=== PATIENT | female | born 1935 | race African-American/Black ===

== ENCOUNTER 2021-10-28 18:05 | Inpatient (IN) | payer MEDICARE, OTHER ==
[~2021-10-28] VITALS: Ht 162.6 cm; Wt 64.4 kg
--- NOTE | 2021-10-28 18:29 | NUR ---
[id number] FRM HOME C/O WEAKNESS,WORSENING SOB. +COVID 2 WEEKS AGO. PT A/OX3. TOLERATING O2 2LPM VIA N/C WELL AT 96%. CONNECTED PT TO POX AND MONITOR. AMBULATORY.
--- NOTE | 2021-10-28 18:30 | NUR ---
IV LINE IS ESTABLISHED, BLOOD SPECIMEN COLLECTED AND SENT TO THE LAB. THE LINE IS SALINE LOCKED.
--- NOTE | 2021-10-28 18:38 | NUR ---
CAN LABELER AT PT'S BEDSIDE
--- NOTE | 2021-10-28 18:43 | NUR ---
PRINT SHOP CHIEF CLERK AT PT'S BEDSIDE
[2021-10-28] MEDS ORDERED: DEXAMETHASONE SOD PHOSPHATE 10 MG/ML VIAL ONE (18:45)
--- NOTE | 2021-10-28 18:45 | NUR ---
Shelby chahal in [facility] - 10/28/21 at 1907 by ADELIA COVID ANTIGEN SWAB COLLECTED AND SENT TO LAB
--- NOTE | 2021-10-28 18:49 | NUR ---
COVID PCR SWAB DONE AND SENT TO THE LAB
[2021-10-28] MEDS ORDERED: DEXAMETHASONE SOD PHOSPHATE 10 MG/ML VIAL IV ONE (19:00)
--- NOTE | 2021-10-28 19:06 | NUR ---
SON WILL WAIT IN IS CAR. LUCIANO SINGLETON. CONTACT # [phone]
--- NOTE | 2021-10-28 19:07 | NUR ---
URINE COLLECTED AND SENT TO LAB
[2021-10-28 19:22] LABS: D-DIMER 1.57 mg/L(FEU (0.17-0.50)
--- NOTE | 2021-10-28 19:30 | NUR ---
TRE RT AT PT'S BEDSIDE FOR ABG. INFLUENZA A+B SWAB COLLECTED AND SENT TO LAB
[2021-10-28 19:31] LABS: CREATINE KINASE, TOTAL 43 U/L (26-192)
[2021-10-28 19:34] LABS: C-REACTIVE PROTEIN 4.9 mg/dL (0.0-0.9)
[2021-10-28 19:36] LABS: CALCIUM, SERUM 8.3 mg/dL (8.5-10.1); CARBON DIOXIDE 25 mmol/L (21-32); CHLORIDE 92 mmol/L (98-107); CREATININE 0.9 mg/dL (0.6-1.3); GLUCOSE 179 mg/dL (74-106); POTASSIUM 4.1 mmol/L (3.5-5.1); SODIUM SERUM 128 mmol/L (136-145); UREA NITROGEN, BLOOD 11 mg/dL (7-18)
[2021-10-28 19:47] LABS: ALANINE AMINOTRANSFERASE 45 U/L (12-78); ALKALINE PHOSPHATASE 140 U/L (46-116); TOTAL PROTEIN, SERUM 6.8 g/dL (6.4-8.2)
[2021-10-28 19:49] LABS: BASOPHILS % (AUTO) 0.2 % (0.0-2.0); EOSINOPHILS % (AUTO) 0.1 % (0.0-6.0); HEMATOCRIT 31 % (33-45); HEMOGLOBIN 10.8 g/dL (11.5-14.8); LYMPHOCYTES # (AUTO) 0.6 K/uL (0.8-4.8); LYMPHOCYTES % (AUTO) 4.9 % (20.0-44.0); MEAN CORPUSCULAR HGB CONC 35 g/dl (31.0-36.0); MEAN CORPUSCULAR VOLUME 86 fL (82-100); MONOCYTES # (AUTO) 0.7 K/uL (0.1-1.30); MONOCYTES % (AUTO) 5.7 % (2.0-12.0); NEUTROPHILS # (AUTO) 10.9 K/uL (1.8-8.9); NEUTROPHILS % (AUTO) 89.1 % (43.0-81.0); PLATELET COUNT (AUTO) 555 K/uL (150-450); RED BLOOD CELL COUNT(AUTO) 3.58 MIL/uL (4.0-5.2); WHITE BLOOD COUNT (AUTO) 12.2 K/uL (4.3-11.0)
[2021-10-28 19:59] LABS: ABG BASE EXCESS 1.3 mmol/L; ABG PCO2 32.5 mmHg (35.0-45.0); ABG PO2 59.5 mmHg (75.0-100.0); COHb 0.3 % (0.5-1.5); MetHb 0.2 % (0.0-1.5); O2Hb 90.6 % (94.0-97.0); SITE, ABG Left Radial; VENT MODE, BG room air
[2021-10-28] MEDS ORDERED: IOHEXOL-350 100 ML VIAL IV ONE (20:06)
[2021-10-28] MEDS ORDERED: CT SWABBABLE VALVE TRANS SET 1 EA INFUS.SET MC ONE (20:06)
[2021-10-28 20:17] LABS: BILIRUBIN,URINE NEGATIVE (NEGATIVE); COLOR,URINE YELLOW (YELLOW); LEUKOCYTE ESTERASE ,URINE NEGATIVE (NEGATIVE); NITRITE, URINE NEGATIVE (NEGATIVE); PH,URINE 5.5 (5.0-8.0); PROTEIN,URINE TRACE mg/dl (NEGATIVE); UGLUCOSE NEGATIVE (NEGATIVE); UROBILINOGEN,URINE 0.2 EU/dL (0.2)
[2021-10-28 20:45] LABS: BACTERIA,URINE RARE /HPF (None Seen); MUCUS,URINE Few /LPF (None Seen); RBC,URINE 0-2 /HPF (0-2); WBC,URINE 0-2 /HPF (0-3)
[2021-10-28] MEDS ORDERED: CEFTRIAXONE 1GM BAG (ER ONLY) 50 ML IV ONE ×2 (21:00→21:43)
[2021-10-28] MEDS ORDERED: AZITHROMYCIN 500 MG in IV D5W 250 ML IV ONE (21:00)
--- NOTE | 2021-10-28 21:01 | NUR ---
Shleby chahal in [facility] - 10/28/21 at 2102 by TERRELL called ru kent
--- NOTE | 2021-10-28 21:02 | NUR ---
called [facility], paged renita
[2021-10-28] MEDS ORDERED: ENOXAPARIN SODIUM 60 MG/0.6 ML DISP.SYRIN SQ ONE ×2 (21:30→21:43)
[2021-10-28] MEDS ORDERED: AZITHROMYCIN 500 MG VIAL ONE (21:43)
[2021-10-28] MEDS ORDERED: MAG HYDROX/AL HYDROX/SIMETH 30 ML UDC PO PRN (22:30)
[2021-10-28] MEDS ORDERED: ACETAMINOPHEN 325 MG TABLET PO PRN (22:30)
[2021-10-28] MEDS ORDERED: IV NS 0.9% 1,000 ML IV ONE (22:30)
[2021-10-28] MEDS ORDERED: ONDANSETRON HCL/PF 4 MG/2 ML VIAL IVP PRN (22:30)
[2021-10-28] MEDS ORDERED: Z GUARD REMEDY 4 OZ OINT TP PRN (22:30)
[2021-10-28 22:35] LABS: ASPARTATE AMINOTRANSFERASE 17 U/L (15-37)
[2021-10-28 22:46] LABS: BILIRUBIN,TOTAL < 0.1 mg/dL (0.2-1.0)
[2021-10-29] VITALS (12 sets, daily range): BP systolic 111–149; BP diastolic 69–88
--- NOTE | 2021-10-29 02:58 | NUR ---
called for report. nurse will call back.
--- NOTE | 2021-10-29 03:15 | NUR ---
REPORT GIVEN TO TERESA FOR FACUNDO
--- NOTE | 2021-10-29 03:45 | NUR ---
PT TRANSPORTED UNIT ONGURNEY WITH EMT AND RN AT BEDSIDE. NAD NOTED. PT AMBULATED FROM RNEY WITH TO BED ON STEADY GAIT W/ SBA
--- NOTE | 2021-10-29 05:13 | NUR ---
ADMISSION NOTES RECEIVED PT VIA MARYCHUY, ACCOMPANIED BY 2 RNs @0340. AOx4, PAKISTANI SPEAKING BUT UNDERSTANDS SOME [place]. ON 3LPM VIA NASAL CANNULA AND TOLERATING WELL. NO SOB NOTED. NO S/SX OF RESPIRATORY DISTRESS NOTED. TELE MONITOR DETECTS AFIB BUT THEN CONVERTED TO SR WITH RATE IN 80S. IV ACCESS IN LAC #18. IV IS INTACT, PATENT, AND FLUSHING WELL. SAFETY PRECAUTIONS IN PLACE: BED IN LOWEST, LOCKED POSITION, SIDERAILS UPx2, AND BRAKES ON. TABLE AND CALL LIGHT WITHIN REACH. WILL CONTINUE TO MONITOR.
[2021-10-29] MEDS ORDERED: FURO20TA4 PO (06:17)
[2021-10-29] MEDS ORDERED: AMLO-212 PO (06:17)
[2021-10-29] MEDS ORDERED: ROSU10TA29 PO (06:17)
[2021-10-29] MEDS ORDERED: CLON0.1T PO (06:17)
[2021-10-29] MEDS ORDERED: ICOS1CAP PO (06:17)
[2021-10-29] MEDS ORDERED: ATEN25TA PO (06:17)
[2021-10-29] MEDS ORDERED: POTA8TAB3 PO (06:17)
[2021-10-29] MEDS ORDERED: AMIO200T5 PO (06:17)
[2021-10-29] MEDS ORDERED: APIX5TAB PO (06:17)
[2021-10-29] MEDS ORDERED: METF-440 PO (06:17)
--- NOTE | 2021-10-29 06:53 | NUR ---
RN CLOSING NOTES PT IN BED, AWAKE. AOx4, CITIZEN OF [place] SPEAKING BUT UNDERSTANDS SOME [place]HM[place]. ON 3LPM VIA NASAL CANNULA AND TOLERATING WELL. NO SOB NOTED. NO S/SX OF RESPIRATORY DISTRESS NOTED. TELE MONITOR DETECTS SR WITH RATE IN 80S. IV ACCESS IN LAC #18. IV IS INTACT, PATENT, AND FLUSHING WELL. ALL NEEDS MET. PT KEPT CLEAN AND DRY. SAFETY PRECAUTIONS IN PLACE: BED IN LOWEST, LOCKED POSITION, SIDERAILS UPx2, AND BRAKES ON. TABLE AND CALL LIGHT WITHIN REACH. WILL ENDORSE TO ONCOMING SHIFT FOR FACUNDO. RECONCILED PATIENTS HOME MEDS. PLACED MEDICATIONS IN ENVELOPE PER PROTOCOL. PATIENT UPSET BUT EXPLAINED THE PROTOCOL.
[2021-10-29 07:27] LABS: HEMATOCRIT 33 % (33-45); HEMOGLOBIN 11.2 g/dL (11.5-14.8); LYMPHOCYTES # (AUTO) 0.4 K/uL (0.8-4.8); LYMPHOCYTES % (AUTO) 4.4 % (20.0-44.0); MEAN CORPUSCULAR HGB CONC 34 g/dl (31.0-36.0); MEAN CORPUSCULAR VOLUME 85 fL (82-100); MONOCYTES # (AUTO) 0.4 K/uL (0.1-1.30); MONOCYTES % (AUTO) 3.6 % (2.0-12.0); PLATELET COUNT (AUTO) 567 K/uL (150-450); RED BLOOD CELL COUNT(AUTO) 3.86 MIL/uL (4.0-5.2); WHITE BLOOD COUNT (AUTO) 9.8 K/uL (4.3-11.0)
[2021-10-29] MEDS ORDERED: ZINC1CAP3 PO (07:44)
[2021-10-29] MEDS ORDERED: CHOL250C2 PO (07:44)
[2021-10-29 07:54] LABS: CALCIUM, SERUM 8.7 mg/dL (8.5-10.1); CREATININE 0.8 mg/dL (0.6-1.3); MAGNESIUM 2.3 mg/dL (1.8-2.4); PHOSPHORUS 4.1 mg/dL (2.5-4.9); POTASSIUM 3.7 mmol/L (3.5-5.1)
[2021-10-29] MEDS: METFORMIN 500 MG TABLET PO SCH (08:05)
[2021-10-29] MEDS: ZINC SULFATE 220 MG CAPSULE PO SCH (08:05)
[2021-10-29] MEDS: CHOLECALCIFEROL 1,000 UNIT TABLET (VIT D3) PO SCH (08:05)
[2021-10-29] MEDS: AMIODARONE HCL 200 MG TABLET PO SCH ×2 (08:07→21:27)
[2021-10-29] MEDS: AMLODIPINE BESYLATE 5 MG TABLET PO SCH ×2 (08:07→17:03)
[2021-10-29] MEDS: DEXAMETHASONE SOD PHOSPHATE 10 MG/ML VIAL IV SCH (08:08)
[2021-10-29] MEDS: ENOXAPARIN SODIUM 40 MG/0.4 ML DISP.SYRIN SQ SCH (08:10)
[2021-10-29] MEDS ORDERED: AZITHROMYCIN 250 MG TABLET PO SCH (09:00)
[2021-10-29] MEDS ORDERED: APIXABAN 5 MG TABLET PO SCH (09:00)
--- NOTE | 2021-10-29 15:00 | NUR ---
ICU/RN PT TRANSFERRED FROM [facility] FOR PERICARDIOCENTESIS.V/S STABLE,AFEBRILE.NO PAIN REPORTED AT THIS TIME.PT IS AWAKE,ALERT,ORIENTED.TOGOLESE SPEAKING.ON 3L N/C SAT O2-96%.LEFT UPPER ARM IV LINE .-HL.PT IS CONTINENT.PT IS USING BEDSIDE COMMODE. CONSENT FOR PROCEDURE IS READY.SINUS RHYTHM ON MONITOR.
[2021-10-29] MEDS ORDERED: DEXTROSE 50%-WATER 50 ML DISP.SYRIN IV PRN (16:00)
[2021-10-29] MEDS: BLOOD SUGAR DIAGNOSTIC 1 EACH STRIP VI SCH ×2 (17:03→22:34)
[2021-10-29] MEDS: *INSULIN REGULAR(HUMULIN R)HUM 100 UNIT/ML VIAL SQ PRN ×2 (17:41→22:42)
--- NOTE | 2021-10-29 18:00 | NUR ---
ICU/RN DUE MEDS ARE GIVEN ORDERED.V/S STABLE,AFEBRILE.NO PAIN REPORTED AT THIS TIME.PT EATS 75% FROM HER MEAL TRAY.PM CARE PROVIDED.CONTINUE MONITORING.
--- NOTE | 2021-10-29 19:45 | NUR ---
ICU/BEAD BUILDER RECIEVED REPORT FROM DAY NURSE. SEE FLOWSHEET FOR ASSESSMENT, THERE IS NO SKIN ISSUES WHICH NEEDS TO BE ADDRESSED ON FLOWSHEET. PT IS A/OX4, AND THERE ARE NO IV FLUIDS. PT TURNS SELF AND REPOSITIONS SELF FOR COMFORT AND CARE.
[2021-10-29] MEDS ORDERED: CEFTRIAXONE 1 G in IV D5W 50 ML IV SCH (21:00)
[2021-10-29] MEDS: ZOLPIDEM TARTRATE 5 MG TABLET PO PRN (23:24)
[2021-10-30] VITALS (26 sets, daily range): BP systolic 96–150; BP diastolic 35–93
[2021-10-30 06:10] LABS: HEMATOCRIT 29 % (33-45); HEMOGLOBIN 9.9 g/dL (11.5-14.8); LYMPHOCYTES # (AUTO) 0.6 K/uL (0.8-4.8); LYMPHOCYTES % (AUTO) 4.2 % (20.0-44.0); MEAN CORPUSCULAR HGB CONC 34 g/dl (31.0-36.0); MEAN CORPUSCULAR VOLUME 86 fL (82-100); MONOCYTES # (AUTO) 0.8 K/uL (0.1-1.30); MONOCYTES % (AUTO) 5.2 % (2.0-12.0); NEUTROPHILS # (AUTO) 13.3 K/uL (1.8-8.9); NEUTROPHILS % (AUTO) 90.6 % (43.0-81.0); PLATELET COUNT (AUTO) 546 K/uL (150-450); RED BLOOD CELL COUNT(AUTO) 3.41 MIL/uL (4.0-5.2); WHITE BLOOD COUNT (AUTO) 14.7 K/uL (4.3-11.0)
[2021-10-30 06:45] LABS: ALBUMIN 2.6 g/dL (3.4-5.0); BILIRUBIN,TOTAL 0.4 mg/dL (0.2-1.0); CALCIUM, SERUM 8.3 mg/dL (8.5-10.1); CREATININE 0.8 mg/dL (0.6-1.3); MAGNESIUM 2.2 mg/dL (1.8-2.4); PHOSPHORUS 4.2 mg/dL (2.5-4.9); POTASSIUM 4.8 mmol/L (3.5-5.1); TOTAL PROTEIN, SERUM 5.7 g/dL (6.4-8.2)
[2021-10-30] MEDS: BLOOD SUGAR DIAGNOSTIC 1 EACH STRIP VI SCH ×4 (07:32→21:07)
--- NOTE | 2021-10-30 07:40 | NUR ---
ICU/RN PT IS RESTING ,ON 3L N/C SAT O2-95%.V/S STABLE,AFEBRILE.NO PAIN REPORTED AT THIS TIME.PT IS WAITING FOR PERICARDICENTESIS. IV-HL.PT IS AMBULATING IN THE ROOM.LABS REVIEW.MD AWARE.CONTINUE MONITORING..
[2021-10-30] MEDS: DEXAMETHASONE SOD PHOSPHATE 10 MG/ML VIAL IV SCH (08:17)
[2021-10-30] MEDS: METFORMIN 500 MG TABLET PO SCH (08:18)
[2021-10-30] MEDS: AMIODARONE HCL 200 MG TABLET PO SCH ×2 (08:18→21:06)
[2021-10-30] MEDS: AMLODIPINE BESYLATE 5 MG TABLET PO SCH ×2 (08:18→17:21)
[2021-10-30] MEDS: CHOLECALCIFEROL 1,000 UNIT TABLET (VIT D3) PO SCH (08:18)
[2021-10-30] MEDS: ZINC SULFATE 220 MG CAPSULE PO SCH (08:18)
[2021-10-30] MEDS: ENOXAPARIN SODIUM 40 MG/0.4 ML DISP.SYRIN SQ SCH (08:20)
[2021-10-30] MEDS: *INSULIN REGULAR(HUMULIN R)HUM 100 UNIT/ML VIAL SQ PRN ×3 (08:22→21:15)
[2021-10-30] MEDS: MAGNESIUM HYDROXIDE 30 ML UDC PO PRN (11:18)
--- NOTE | 2021-10-30 14:30 | NUR ---
ICU/RN PT WENT TO ATRIAL FIBRILLATION HR-120-130 BPM.MD NOTIFIED. NEW ORDERS RECEIVED.
[2021-10-30] MEDS ORDERED: AMIODARONE 150 MG in IV D5W 100 ML IV ONE (15:30)
--- NOTE | 2021-10-30 15:45 | NUR ---
ICU/RN PT CONVERTED BACK TO SINUS RHYTHM. BEFORE AMIODARONE STARTED.MD NOTIFIED. HR 80-90 BPM. MD NOTIFIED.AMIODARONE PLACED ON HOLD. KEEP IN ICU.CONTINUE MONITORING.
[2021-10-30] MEDS ORDERED: AMIODARONE 450 MG in IV D5W 241 ML IV PRN (16:00)
--- NOTE | 2021-10-30 19:30 | NUR ---
RN OPENING NOTE RECEIVED PATIENT IN BED. A/OX3, NIUEAN SPEAKING, SPEAKS VERY LITTLE TURKM[place]. ABLE TO MAKE BASIC NEEDS KNOWN. ON OXYGEN 3L/MIN VIA NASAL CANNULA, RESPIRATIONS ARE EVEN AND UNLABORED. NO S/S SOB NOTED. NO C/O OR S/S PAIN NOTED. NO DISTRESS. TELE MONITOR READS SINUS RHYTHM HR 96. IV ACCESS IN OSCAR MIDLINE AND LAC#18 PATENT AND SALINE LOCKED, BED IS LOW AND LOCKED, HOB ELEVATED IN SEMI FOWLERS, SIDE RAILS UP X2, CALL LIGHT WITHIN REACH. ALARMS ON AND SAFETY PRECAUTIONS IN PLACE. OTOLARYNGOLOGY REP ED WHO SPEAKS NIUEAN WAS ABLE TO INSTRUCT PATIENT TO DO A SPUTUM COLLECTION.
[2021-10-30] MEDS: ZOLPIDEM TARTRATE 5 MG TABLET PO PRN (22:18)
[2021-10-31] VITALS (22 sets, daily range): BP systolic 104–144; BP diastolic 59–90
[2021-10-31 06:08] LABS: C-REACTIVE PROTEIN 2.5 mg/dL (0.0-0.9); HEMATOCRIT 30 % (33-45); HEMOGLOBIN 10.3 g/dL (11.5-14.8); LYMPHOCYTES # (AUTO) 0.5 K/uL (0.8-4.8); LYMPHOCYTES % (AUTO) 3.4 % (20.0-44.0); MEAN CORPUSCULAR HGB CONC 34 g/dl (31.0-36.0); MEAN CORPUSCULAR VOLUME 86 fL (82-100); MONOCYTES # (AUTO) 0.5 K/uL (0.1-1.30); MONOCYTES % (AUTO) 3.6 % (2.0-12.0); NEUTROPHILS # (AUTO) 13.8 K/uL (1.8-8.9); PLATELET COUNT (AUTO) 598 K/uL (150-450); RED BLOOD CELL COUNT(AUTO) 3.54 MIL/uL (4.0-5.2); WHITE BLOOD COUNT (AUTO) 14.9 K/uL (4.3-11.0)
--- NOTE | 2021-10-31 06:18 | NUR ---
RN CLOSING NOTE RESTING IN BED. A/OX3. REMAINS ON OXYGEN 3L/MIN VIA NASAL CANNULA. WHEN MOVING TO [facility] [place] PATIENT DID DESATURATE TO 90% ON 3L NC. NO PAIN. TELE MONITOR CONTINUES TO READ SINUS RHYTHM .OSCAR MIDLINE AND LAC#18 MAINTAINED, BED REMAINS LOW AND LOCKED, HOB ELEVATED IN SEMI FOWLERS, SIDE RAILS UP X2, CALL LIGHT WITHIN REACH. ALARMS ON AND SAFETY PRECAUTIONS IN PLACE. WILL ENDORSE TO ONCOMING SHIFT.
[2021-10-31 07:10] LABS: ALANINE AMINOTRANSFERASE 34 U/L (12-78); ALBUMIN 2.6 g/dL (3.4-5.0); ALKALINE PHOSPHATASE 105 U/L (46-116); ASPARTATE AMINOTRANSFERASE 15 U/L (15-37); BILIRUBIN,TOTAL 0.3 mg/dL (0.2-1.0); CALCIUM, SERUM 8.6 mg/dL (8.5-10.1); CARBON DIOXIDE 27 mmol/L (21-32); CHLORIDE 97 mmol/L (98-107); CREATININE 0.9 mg/dL (0.6-1.3); GLUCOSE 144 mg/dL (74-106); MAGNESIUM 2.3 mg/dL (1.8-2.4); PHOSPHORUS 3.5 mg/dL (2.5-4.9); POTASSIUM 4.6 mmol/L (3.5-5.1); SODIUM SERUM 135 mmol/L (136-145); TOTAL PROTEIN, SERUM 6.3 g/dL (6.4-8.2); UREA NITROGEN, BLOOD 19 mg/dL (7-18)
[2021-10-31] MEDS: DEXAMETHASONE SOD PHOSPHATE 10 MG/ML VIAL IV SCH (08:15)
[2021-10-31] MEDS: COLCHICINE 0.6 MG TABLET PO SCH ×2 (08:15→17:49)
[2021-10-31] MEDS: CHOLECALCIFEROL 1,000 UNIT TABLET (VIT D3) PO SCH (08:15)
[2021-10-31] MEDS: BLOOD SUGAR DIAGNOSTIC 1 EACH STRIP VI SCH ×4 (08:15→21:00)
[2021-10-31] MEDS: AMLODIPINE BESYLATE 5 MG TABLET PO SCH ×2 (08:16→17:49)
[2021-10-31] MEDS: METFORMIN 500 MG TABLET PO SCH (08:16)
[2021-10-31] MEDS: AMIODARONE HCL 200 MG TABLET PO SCH ×2 (08:16→20:24)
[2021-10-31] MEDS: ZINC SULFATE 220 MG CAPSULE PO SCH (08:16)
[2021-10-31] MEDS: ENOXAPARIN SODIUM 40 MG/0.4 ML DISP.SYRIN SQ SCH (08:19)
[2021-10-31] MEDS: INSULIN REGULAR, HUMAN 100 UNIT/ML 3 ML VIAL SQ PRN ×3 (09:27→18:09)
--- NOTE | 2021-10-31 18:09 | NUR ---
PT HAS BEEN IN AND OUT OF A-FIB 110'S-130'S SINCE 1300 TODAY, PT IS ASYMPTOMATIC. DR. GOMEZ NOTIFIED AND THAT PATIENT HAS ROOM IN COVID OVERFLOW -. PER DR PATIENT CAN STILL DOWNGRADE TO TELE COVID OVERFLOW.
--- NOTE | 2021-10-31 20:00 | NUR ---
Patient arrived to unit at `1940 in stable condition. No signs of distress noted. Patient is A&Ox4 east timorese speaking. OSCAR midline and LAC #18G flushed and patent. Denies SOB. Is able to make needs known. Tele monitor applied. Oriented to unit protocols, call light, bed controls. Iso precautions and fall precautions in place. Tolerating O2 at 3L 96% sat. Will continue to monitor.
[2021-10-31] MEDS: *INSULIN REGULAR(HUMULIN R)HUM 100 UNIT/ML VIAL SQ PRN (21:11)
[2021-10-31] MEDS: ZOLPIDEM TARTRATE 5 MG TABLET PO PRN (23:58)
[2021-11-01] VITALS: BP_SYST 108; BP_SYST 127; BP_DIAS 50; BP_DIAS 72
[2021-11-01 04:00] VITALS: BP_SYST 122; BP_SYST 124; BP_DIAS 67; BP_DIAS 84
--- NOTE | 2021-11-01 06:17 | NUR ---
Patient stable overnight. No episodes of distress. SR at 87 on monitor. Able to use BSC with assist without any SOB. Patient currently resting in bed calmly. Has been NPO since midnight for pericardiocentesis.
[2021-11-01] MEDS: BLOOD SUGAR DIAGNOSTIC 1 EACH STRIP VI SCH ×4 (06:54→23:15)
--- NOTE | 2021-11-01 07:40 | NUR ---
RETAIL PRICING COORDINATOR OPENING NOTE RECEIVED PT ASLEEP IN BED, EASY TO AROUSE. ALERT AND ORIENTED X 4. BREATHING IS EVEN AND UNLABORED. NO S/SX OF DISTRESS NOTED. NO C/O PAIN. IV ACCESS OSCAR MIDLINE PATENT AND INTACT. PT WITH EXTERNAL POLE INSPECTOR WITH SR 80S READING. SAFETY MEASURES IN PLACE WITH BED LOCKED AND LOW POSITION;SIDE RAILS UP X2. WILL MONITOR PATIENT FOR CHANGES IN CONDITION.
[2021-11-01 08:00] VITALS: BP 121/68
[2021-11-01 08:07] LABS: HEMATOCRIT 32 % (33-45); HEMOGLOBIN 10.6 g/dL (11.5-14.8); LYMPHOCYTES # (AUTO) 0.5 K/uL (0.8-4.8); LYMPHOCYTES % (AUTO) 4.4 % (20.0-44.0); MEAN CORPUSCULAR HGB CONC 34 g/dl (31.0-36.0); MEAN CORPUSCULAR VOLUME 86 fL (82-100); MONOCYTES # (AUTO) 0.4 K/uL (0.1-1.30); MONOCYTES % (AUTO) 3.7 % (2.0-12.0); NEUTROPHILS # (AUTO) 10.8 K/uL (1.8-8.9); NEUTROPHILS % (AUTO) 91.9 % (43.0-81.0); PLATELET COUNT (AUTO) 574 K/uL (150-450); RED BLOOD CELL COUNT(AUTO) 3.68 MIL/uL (4.0-5.2); WHITE BLOOD COUNT (AUTO) 11.8 K/uL (4.3-11.0)
[2021-11-01 08:13] LABS: ALBUMIN 2.5 g/dL (3.4-5.0); BILIRUBIN,TOTAL 0.3 mg/dL (0.2-1.0); CALCIUM, SERUM 8.2 mg/dL (8.5-10.1); CREATININE 0.9 mg/dL (0.6-1.3); MAGNESIUM 2.4 mg/dL (1.8-2.4); PHOSPHORUS 3.9 mg/dL (2.5-4.9); POTASSIUM 3.9 mmol/L (3.5-5.1); TOTAL PROTEIN, SERUM 6.2 g/dL (6.4-8.2)
[2021-11-01] MEDS: ZINC SULFATE 220 MG CAPSULE PO SCH (09:00)
[2021-11-01] MEDS: METFORMIN 500 MG TABLET PO SCH (09:00)
[2021-11-01] MEDS: ENOXAPARIN SODIUM 40 MG/0.4 ML DISP.SYRIN SQ SCH (09:00)
[2021-11-01] MEDS: CHOLECALCIFEROL 1,000 UNIT TABLET (VIT D3) PO SCH (09:00)
[2021-11-01] MEDS: COLCHICINE 0.6 MG TABLET PO SCH ×2 (09:00→17:00)
[2021-11-01] MEDS: AMLODIPINE BESYLATE 5 MG TABLET PO SCH ×2 (09:00→17:00)
[2021-11-01] MEDS: AMIODARONE HCL 200 MG TABLET PO SCH ×2 (09:00→21:06)
[2021-11-01] MEDS: DEXAMETHASONE SOD PHOSPHATE 10 MG/ML VIAL IV SCH (09:30)
[2021-11-01 12:00] VITALS: BP 116/86
[2021-11-01] MEDS ORDERED: ANESTHESIA TRAY IN PYXIS 1 EA TRAY MC ONE (15:31)
[2021-11-01] MEDS ORDERED: KETAMINE HCL (500MG/10ML) 50 MG/ML VIAL ONE (15:54)
[2021-11-01] MEDS ORDERED: FENTANYL PF 100MCG/2ML AMPUL ONE (15:54)
[2021-11-01] MEDS ORDERED: MIDAZOLAM HCL 2 MG/2ML VIAL ONE (15:54)
[2021-11-01 16:00] VITALS: BP 116/75
[2021-11-01] MEDS ORDERED: SEVOFLURANE 250 ML BOTTLE IH ONE (16:09)
--- NOTE | 2021-11-01 17:00 | NUR ---
RN NOTE PT OUT OF UNIT AT THIS TIME FOR PROCEDURE.
[2021-11-01] MEDS ORDERED: LIDOCAINE 1% INJ 50 ML MDV IJ ONE (17:04)
--- NOTE | 2021-11-01 18:00 | NUR ---
RN NOTE PT RETURNED FROM OR WITH STABLE VITALS. PT WAS BROUGHT BY OR NURSE, GAVINO. PT NOTED WITH DRESSING AND DRAIN ABOVE ABDOMEN. NO S/SX OF DISTRESS NOTED. NO C/O PAIN AT THIS TIME. WILL CONTINUE TO MONITOR PATIENT.
--- NOTE | 2021-11-01 19:14 | NUR ---
SUGAR REPROCESS OPERATOR HEAD CLOSING NOTE RESTING IN BED, AWKE. REMAINS ON OXYGEN 3L/MIN VIA NASAL CANNULA. TELE MONITOR CONTINUES TO READ SINUS RHYTHM .OSCAR MIDLINE AND LAC#18 MAINTAINED. PT SURGICAL DRESSING INTACT AND DRAINING RED. BED REMAINS LOW AND LOCKED, HOB ELEVATED IN SEMI FOWLERS, SIDE RAILS UP X2, CALL LIGHT WITHIN REACH. ALARMS ON AND SAFETY PRECAUTIONS IN PLACE. WILL ENDORSE TO ONCOMING SHIFT.
--- NOTE | 2021-11-01 19:20 | NUR ---
TELE/RN OPENING NOTES PT AWAKE IN BED, A/OX4, IRAQI SPEAKING, UNDERSTANDS SOME PORTUGUESE, ABLE TO MAKE NEEDS KNOWN. RESPIRATIONS EVEN/UNLABORED. ON O2 @3LPM VIA NC. IV SITE: OSCAR MIDLINE INTACT/PATENT/FLUSHES WELL. TELE MONITOR READING SR WITH BBB. PT IS S/P PERICARDIOCENTESIS, WITH DRAIN IN PLACE. PT IN NO ACUTE DISTRESS. SAFETY MEASURES IN PLACE. WILL CONT TO MONITOR.
[2021-11-01 20:00] VITALS: BP 115/70
[2021-11-01] MEDS: ATORVASTATIN 10 MG TABLET PO SCH (21:07)
[2021-11-02] VITALS: BP_SYST 114; BP_SYST 131; BP_DIAS 73; BP_DIAS 75
[2021-11-02] MEDS: ZOLPIDEM TARTRATE 5 MG TABLET PO PRN (00:53)
[2021-11-02 04:00] VITALS: BP 113/61
[2021-11-02] MEDS: BLOOD SUGAR DIAGNOSTIC 1 EACH STRIP VI SCH ×4 (06:32→22:00)
[2021-11-02] MEDS: INSULIN REGULAR, HUMAN 100 UNIT/ML 3 ML VIAL SQ PRN ×3 (06:54→17:25)
--- NOTE | 2021-11-02 07:15 | NUR ---
TELE/RN CLOSING NOTES PT AWAKE/ALERT, DENIES ANY PAIN. NO RESPIRATORY DISTRESS NOTED. TELE MONITOR READING SR WITH BBB, HR 71. SURGICAL DRAIN INTACT, DRAINING WELL, TOTAL 300ML IN DRAINAGE BAG NOTED. NO ACUTE DISTRESS DURING THE NIGHT. ALL NEEDS ATTENDED TO. ENDORSED TO NEXT SHIFT NURSE.
--- NOTE | 2021-11-02 07:30 | NUR ---
MANAGER ACQUISITION NOTES PT IN BED, AWAKE, ALERT AND ORIENTED, DENIES PAIN, NOT IN DISTRESS, CALL LIGHT WITHIN REACH, CHEST DRAIN IN PLACE, DRAINING MININALLY, NEEDS ATTENDED.
[2021-11-02 08:00] VITALS: BP 113/60
[2021-11-02 08:41] LABS: BASOPHILS % (AUTO) 0.1 % (0.0-2.0); HEMATOCRIT 36 % (33-45); LYMPHOCYTES # (AUTO) 0.5 K/uL (0.8-4.8); LYMPHOCYTES % (AUTO) 5.5 % (20.0-44.0); MEAN CORPUSCULAR HGB CONC 33 g/dl (31.0-36.0); MEAN CORPUSCULAR VOLUME 87 fL (82-100); MONOCYTES # (AUTO) 0.3 K/uL (0.1-1.30); MONOCYTES % (AUTO) 3.3 % (2.0-12.0); NEUTROPHILS # (AUTO) 7.8 K/uL (1.8-8.9); NEUTROPHILS % (AUTO) 91.1 % (43.0-81.0); PLATELET COUNT (AUTO) 578 K/uL (150-450); RED BLOOD CELL COUNT(AUTO) 4.17 MIL/uL (4.0-5.2); WHITE BLOOD COUNT (AUTO) 8.5 K/uL (4.3-11.0)
[2021-11-02] MEDS: ZINC SULFATE 220 MG CAPSULE PO SCH (08:49)
[2021-11-02] MEDS: METFORMIN 500 MG TABLET PO SCH (08:49)
[2021-11-02] MEDS: DEXAMETHASONE SOD PHOSPHATE 10 MG/ML VIAL IV SCH (08:49)
[2021-11-02] MEDS: CHOLECALCIFEROL 1,000 UNIT TABLET (VIT D3) PO SCH (08:49)
[2021-11-02] MEDS: AMIODARONE HCL 200 MG TABLET PO SCH ×2 (08:50→21:18)
[2021-11-02] MEDS: AMLODIPINE BESYLATE 5 MG TABLET PO SCH ×2 (08:50→17:10)
[2021-11-02] MEDS: ENOXAPARIN SODIUM 40 MG/0.4 ML DISP.SYRIN SQ SCH (08:52)
[2021-11-02] MEDS ORDERED: METFORMIN 500 MG TABLET PO SCH (09:00)
[2021-11-02] MEDS ORDERED: FUROSEMIDE 40 MG/4 ML VIAL IV ONE (09:00)
[2021-11-02 09:02] LABS: ALBUMIN 2.4 g/dL (3.4-5.0); BILIRUBIN,TOTAL 0.4 mg/dL (0.2-1.0); CALCIUM, SERUM 8.3 mg/dL (8.5-10.1); CREATININE 0.8 mg/dL (0.6-1.3); MAGNESIUM 2.3 mg/dL (1.8-2.4); PHOSPHORUS 4.2 mg/dL (2.5-4.9); POTASSIUM 4.2 mmol/L (3.5-5.1); TOTAL PROTEIN, SERUM 5.9 g/dL (6.4-8.2)
[2021-11-02 09:52] LABS: IRON, SERUM 33 ug/dl (50-175); TOTAL IRON BINDING CAPACITY 197 ug/dl (250-450)
[2021-11-02 10:26] LABS: FERRITIN 209 ng/mL (8-388)
[2021-11-02 12:00] VITALS: BP 118/61
[2021-11-02 16:00] VITALS: BP 119/71
--- NOTE | 2021-11-02 19:30 | NUR ---
RN TEAM LEADER NOTES PT IN BED, AWAKE, ALERT AND ORIENTED, DENIES PAIN, NOT IN DISTRESS, MINIMAL DRAIN NOTED AT CHEST DRAIN, PM CARE PROVIDED, PM MEDS GIVEN ORDERED, ALL NEEDS ATTENDED.
--- NOTE | 2021-11-02 19:44 | NUR ---
CHILD NUTRITION MANAGER OPENING NOTES: RECEIVED PATIENT AWAKE IN BED, BED IN LOW POSITION, CALL LIGHTS WITHIN REACH, NO COMPLAIN OF PAIN AND DISCOMFORT AT THIS TIME, PATIENT IS A/O X4 ON TELE MONITORING, PATIENT WITH IV LINE AT OSCAR MIDLINE, SL PATIENT ON O2 INHALATION NO SOB WAS OBSERVED, PATIENT KEPT CLEAN AND DRY ALL NEEDS MET, WILL CONTINUE TO MONITOR.
[2021-11-02 20:00] VITALS: BP 113/74
[2021-11-02] MEDS: ATORVASTATIN 10 MG TABLET PO SCH (21:17)
[2021-11-03] VITALS: BP 114/75
[2021-11-03] MEDS: ZOLPIDEM TARTRATE 5 MG TABLET PO PRN ×2 (00:50→23:03)
[2021-11-03] MEDS: INSULIN REGULAR, HUMAN 100 UNIT/ML 3 ML VIAL SQ PRN ×4 (01:14→17:55)
[2021-11-03 04:00] VITALS: BP 128/72
[2021-11-03 06:57] LABS: BASOPHILS % (AUTO) 0.3 % (0.0-2.0); EOSINOPHILS % (AUTO) 0.1 % (0.0-6.0); HEMATOCRIT 39 % (33-45); HEMOGLOBIN 12.9 g/dL (11.5-14.8); LYMPHOCYTES # (AUTO) 0.6 K/uL (0.8-4.8); LYMPHOCYTES % (AUTO) 5.2 % (20.0-44.0); MEAN CORPUSCULAR HGB CONC 34 g/dl (31.0-36.0); MEAN CORPUSCULAR VOLUME 85 fL (82-100); MONOCYTES # (AUTO) 0.3 K/uL (0.1-1.30); MONOCYTES % (AUTO) 2.9 % (2.0-12.0); NEUTROPHILS # (AUTO) 10.9 K/uL (1.8-8.9); NEUTROPHILS % (AUTO) 91.5 % (43.0-81.0); PLATELET COUNT (AUTO) 609 K/uL (150-450); RED BLOOD CELL COUNT(AUTO) 4.52 MIL/uL (4.0-5.2); WHITE BLOOD COUNT (AUTO) 11.9 K/uL (4.3-11.0)
[2021-11-03 07:26] LABS: ALBUMIN 2.4 g/dL (3.4-5.0); BILIRUBIN,TOTAL 0.4 mg/dL (0.2-1.0); CALCIUM, SERUM 8.5 mg/dL (8.5-10.1); CREATININE 0.8 mg/dL (0.6-1.3); MAGNESIUM 2.2 mg/dL (1.8-2.4); PHOSPHORUS 3.7 mg/dL (2.5-4.9); POTASSIUM 4.1 mmol/L (3.5-5.1); TOTAL PROTEIN, SERUM 6.2 g/dL (6.4-8.2)
--- NOTE | 2021-11-03 07:35 | NUR ---
RN CLOSING NOTES: PATIENT AWAKE IN BED,. BED IN LOW POSITION, CALL LIGHTS WITHIN REACH, NO COMPLAIN OF PAIN AND DISCOMFORT AT THIS TIME, PATIENT ON TELE MONITORING REMAINS STABLE, A/O X4 ABLE TO MAKE NEEDS KNOWN, PATIENT KEPT CLEAN AND DRY ALL NEEDS MET ENDORSE TO INCOMING SHIFT
--- NOTE | 2021-11-03 07:40 | NUR ---
RN OPENING NOTE PATIENT RECEIVED IN BED, RESTING. PATIENT ON 3L O2 NC WIT NO SIGNS OF LABORED BREATHING AT THIS TIME. LEFT PERICARDIOCENTESIS DRAIN IN PLACE, NO OVERNIGHT OUTPUT REPORTED BY BLIND INSTALLER RN. LEFT UA MIDLINE IN PLACE. BED LOCKED AND IN LOWEST POSITION, CALL LIGHT WITHIN REACH, 3 SIDE RAILS UP. WILL CONTINUE TO MONITOR.
[2021-11-03] MEDS: BLOOD SUGAR DIAGNOSTIC 1 EACH STRIP VI SCH ×4 (07:51→21:33)
[2021-11-03 08:00] VITALS: BP 112/68
[2021-11-03] MEDS: AMLODIPINE BESYLATE 5 MG TABLET PO SCH ×2 (09:00→17:00)
[2021-11-03] MEDS: AMIODARONE HCL 200 MG TABLET PO SCH ×2 (09:00→21:00)
[2021-11-03] MEDS: CHOLECALCIFEROL 1,000 UNIT TABLET (VIT D3) PO SCH (09:02)
[2021-11-03] MEDS: ZINC SULFATE 220 MG CAPSULE PO SCH (09:02)
[2021-11-03] MEDS: METFORMIN 500 MG TABLET PO SCH (09:02)
[2021-11-03] MEDS: DEXAMETHASONE SOD PHOSPHATE 10 MG/ML VIAL IV SCH (09:03)
[2021-11-03] MEDS: ENOXAPARIN SODIUM 40 MG/0.4 ML DISP.SYRIN SQ SCH (09:04)
[2021-11-03] MEDS ORDERED: IV NS 0.9% 500 ML IV ONE (14:30)
--- NOTE | 2021-11-03 15:25 | NUR ---
RN NOTE PERICARDITIS DRAIN REMOVED BY MD AT BEDSIDE. VITAL SIGNS STABLE. WILL CONTINUE TO MONITOR.
[2021-11-03 16:00] VITALS: BP 118/74
--- NOTE | 2021-11-03 19:07 | NUR ---
RN CLOSING NOTE PATIENT REMAINS IN BED, RESTING. PATIENT ON 3L O2 NC WITH NO SIGNS OF LABORED BREATHING AT THIS TIME. LEFT UA MIDLINE IN PLACE. ALL NEEDS ATTENDED DURING SHIFT. BED LOCKED AND IN LOWEST POSITION, CALL LIGHT WITHIN REACH, 3 SIDE RAILS UP. WILL CONTINUE TO MONITOR.
--- NOTE | 2021-11-03 19:40 | NUR ---
RN NOTES RECEIVED PATIENT AWAKE ON HIS BED, FINANCIAL ANALYSIS MANAGER CALLED AND INFORMED ME THAT PATIENT RHYTHM CHANGE FROM SR TO UNCONTROLLED A-FIB. WILL INFORMED MD MESS COOK. PATIENT IS A/OX4, ASYMPTOMATIC, DENIES PAIN, NO SOB CALL LIGHT WITHIN REACH,, SIDERAILSUPX2, WILL CONTINUE TO MONITOR
--- NOTE | 2021-11-03 19:40 | NUR ---
RN NOTES STAT EKG ORDERED, RT MADE AWARE
[2021-11-03 20:00] VITALS: BP 113/77
--- NOTE | 2021-11-03 20:07 | NUR ---
RT STAT EKG DONE, RESULTS GIVEN TO ADELFO DON.
--- NOTE | 2021-11-03 20:35 | NUR ---
RN NOTES spoke to dr. Abrams and informed her regarding patient new onset uncontrolled A-fid, Got an order of Cadizem 10mg IV x1, order noted and carried out
--- NOTE | 2021-11-03 20:40 | NUR ---
RN NOTES CARDIZEM 10MG IV GIVEN FOR NEW ONSE UNCONTROLLED A-FIB, WILL CONTINUE TO MONITOR
[2021-11-03] MEDS ORDERED: DILTIAZEM HCL 25 MG IV IV ONE (21:00)
[2021-11-03] MEDS: ATORVASTATIN 10 MG TABLET PO SCH (21:33)
[2021-11-03] MEDS: MAGNESIUM HYDROXIDE 30 ML UDC PO PRN (21:43)
[2021-11-03] MEDS: *INSULIN REGULAR(HUMULIN R)HUM 100 UNIT/ML VIAL SQ PRN (21:44)
--- NOTE | 2021-11-03 22:35 | NUR ---
RN NOTES INFORMED DR. MINA THAT AFTER GIVING CARDIZEM 10MG IV , PATIENT RHYTHM CONVERTED TO SR.. PATIENT HAS CORDARONE 200MG PO DUE AROUND 2100. DR. MINA ORDERED TO HOLD IT FOR TONIGHT SINCE PATIENT RECEIVED CARDIZEM 10MG IV AND RESUME IN THE MORNING, ORDER NOTED AND CARRIED OUT
--- NOTE | 2021-11-03 22:35 | NUR ---
RN NOTES PATIENT COMPLAINED OF CONSTIPATION, MOM 30ML PO GIVEN ORDERED
--- NOTE | 2021-11-03 23:00 | NUR ---
RN NOTES PATIENT ASKED FOR SLEEPING PILL. AMBIEN 5MG PO GIVEN ORDERED
[2021-11-04] VITALS: BP 140/79
--- NOTE | 2021-11-04 06:26 | NUR ---
RN NOTES AWAKE, DENIES PAIN, NO SOB, MORNING CARE RENDERED, CALL LIGHT WITHIN REACH, SIDERAILSUPX2, PT. NEEDS ATTENDED
[2021-11-04] MEDS: INSULIN REGULAR, HUMAN 100 UNIT/ML 3 ML VIAL SQ PRN ×3 (06:43→17:42)
[2021-11-04] MEDS: BLOOD SUGAR DIAGNOSTIC 1 EACH STRIP VI SCH ×4 (06:43→21:57)
--- NOTE | 2021-11-04 07:22 | NUR ---
RN OPENING NOTES Patient seen comfortably lying in bed, breathing even and unlabored, no SOB, no apparent distress noted, denies any pain or discomfort at this time, no grimacing. Call light left within reach, safety precautions in place, brakes locked, side rails up X 2, will monitor closely for any changes.
[2021-11-04 07:33] LABS: EOSINOPHILS % (AUTO) 0.1 % (0.0-6.0); HEMATOCRIT 37 % (33-45); HEMOGLOBIN 12.5 g/dL (11.5-14.8); LYMPHOCYTES # (AUTO) 0.5 K/uL (0.8-4.8); LYMPHOCYTES % (AUTO) 5.3 % (20.0-44.0); MEAN CORPUSCULAR HGB CONC 33 g/dl (31.0-36.0); MEAN CORPUSCULAR VOLUME 85 fL (82-100); MONOCYTES # (AUTO) 0.4 K/uL (0.1-1.30); MONOCYTES % (AUTO) 3.8 % (2.0-12.0); NEUTROPHILS # (AUTO) 9.3 K/uL (1.8-8.9); NEUTROPHILS % (AUTO) 90.8 % (43.0-81.0); PLATELET COUNT (AUTO) 554 K/uL (150-450); RED BLOOD CELL COUNT(AUTO) 4.37 MIL/uL (4.0-5.2); WHITE BLOOD COUNT (AUTO) 10.2 K/uL (4.3-11.0)
[2021-11-04 08:00] VITALS: BP 111/72
[2021-11-04 08:18] LABS: CALCIUM, SERUM 8.3 mg/dL (8.5-10.1); CREATININE 0.8 mg/dL (0.6-1.3)
[2021-11-04] MEDS: ZINC SULFATE 220 MG CAPSULE PO SCH (09:14)
[2021-11-04] MEDS: METFORMIN 500 MG TABLET PO SCH (09:14)
[2021-11-04] MEDS: CHOLECALCIFEROL 1,000 UNIT TABLET (VIT D3) PO SCH (09:14)
[2021-11-04] MEDS: DEXAMETHASONE SOD PHOSPHATE 10 MG/ML VIAL IV SCH (09:15)
[2021-11-04] MEDS: AMLODIPINE BESYLATE 5 MG TABLET PO SCH ×2 (09:17→17:27)
[2021-11-04] MEDS: ENOXAPARIN SODIUM 40 MG/0.4 ML DISP.SYRIN SQ SCH (09:17)
[2021-11-04] MEDS: AMIODARONE HCL 200 MG TABLET PO SCH ×2 (09:18→20:23)
[2021-11-04 16:00] VITALS: BP 117/85
--- NOTE | 2021-11-04 19:12 | NUR ---
RN CLOSING NOTES Patient in bed, no SOB, respirations even and unlabored, no shortness of breath, tolerating room air, 02 sat between 96-98%, no nausea, no vomiting, abdominal bowel sound present in all quadrant, no grimacing when abdomen palpated. All due medications given per MD order, tolerating well. No s/s of hypo or hyperglycemia, no tremors, no change in level of consciousness, insulin given per sliding scale as needed per MD order, tolerating well. Kept clean and dry, all needs attended, call light left within reach, safety precautions in place, brakes locked, side rails up X 2, will endorse to next shift for continuity of care.
[2021-11-04 20:00] VITALS: BP 121/56
[2021-11-04] MEDS: MAGNESIUM HYDROXIDE 30 ML UDC PO PRN (20:23)
--- NOTE | 2021-11-04 21:20 | NUR ---
TALKED TO DR MINA RE: UNCONTROLLED AFIB ON MONITOR, HR RANGES FROM 127 TO 135. NO ORDERS MADE. WILL CONTINUE TO MONITOR THE PATIENT.
[2021-11-04] MEDS: ATORVASTATIN 10 MG TABLET PO SCH (21:50)
[2021-11-04] MEDS: ZOLPIDEM TARTRATE 5 MG TABLET PO PRN (22:12)
[2021-11-04] MEDS: *INSULIN REGULAR(HUMULIN R)HUM 100 UNIT/ML VIAL SQ PRN (22:12)
[2021-11-05] VITALS: BP 113/65
--- NOTE | 2021-11-05 00:21 | NUR ---
PER COMPOSITION WEATHERBOARD APPLIER, PATIENT IS SINUS RHYTHM NOW.
[2021-11-05 04:00] VITALS: BP 129/76
[2021-11-05] MEDS: INSULIN REGULAR, HUMAN 100 UNIT/ML 3 ML VIAL SQ PRN ×2 (07:00→13:39)
--- NOTE | 2021-11-05 07:19 | NUR ---
RN NOTES RECEIVED PATIENT AWAKE ON HIS BED, PATIENT IS ALERT AND ORIENTED X 4. WITH OXYGEN AT 3LPM VIA NASAL CANULA. WITH EQUAL AND UNLABORED BREATHING, NO SIGNS AND SYMPTOMS OF SOB. WITH LEFT UPPER ARM MIDLINE ON SALINE LOCK. COMFORT MEASURES PROVIDED. IN STABLE CONDITION. WILL CONTINUE TO MONITOR PATIENT.
[2021-11-05 08:00] VITALS: BP 138/86
[2021-11-05] MEDS: BLOOD SUGAR DIAGNOSTIC 1 EACH STRIP VI SCH ×2 (08:27→12:00)
[2021-11-05] MEDS: DEXAMETHASONE SOD PHOSPHATE 10 MG/ML VIAL IV SCH (08:30)
[2021-11-05] MEDS: CHOLECALCIFEROL 1,000 UNIT TABLET (VIT D3) PO SCH (08:31)
[2021-11-05] MEDS: METFORMIN 500 MG TABLET PO SCH (08:33)
[2021-11-05] MEDS: AMIODARONE HCL 200 MG TABLET PO SCH (08:34)
[2021-11-05] MEDS: ZINC SULFATE 220 MG CAPSULE PO SCH (08:34)
[2021-11-05 08:35] VITALS: BP 138/86
[2021-11-05] MEDS: ENOXAPARIN SODIUM 40 MG/0.4 ML DISP.SYRIN SQ SCH (08:35)
[2021-11-05] MEDS: AMLODIPINE BESYLATE 5 MG TABLET PO SCH (08:35)
[2021-11-05] MEDS ORDERED: APIXABAN 5 MG TABLET PO SCH (09:00)
--- NOTE | 2021-11-05 09:30 | NUR ---
DATA PROCESSING AUDITOR NOTE GLADYS REFUSED, LOVENOX GIVEN BEFORE MD CHANGED IT. NO SIGNS OF BLEEDING NOTED AT THIS TIME. WILL CONTINUE TO MONITOR PATIENT.
[2021-11-05] MEDS ORDERED: METF-440 PO (10:09)
[2021-11-05] MEDS ORDERED: ACET325T53 PO (10:09)
[2021-11-05] MEDS ORDERED: CHOL100040 PO (10:09)
[2021-11-05] MEDS ORDERED: AMIO200T7 PO (10:09)
[2021-11-05] MEDS ORDERED: Blood Sugar Diagnostic VI (10:09)
[2021-11-05] MEDS ORDERED: *INS REG SQ (10:09)
[2021-11-05] MEDS ORDERED: APIX5TAB PO (10:09)
[2021-11-05] MEDS ORDERED: DEXA10VI2 PO (10:09)
[2021-11-05] MEDS ORDERED: AMLO-212 PO (10:09)
--- NOTE | 2021-11-05 11:30 | NUR ---
ICE CREAM FREEZER ASSISTANT NOTE PATIENT WITH ORDER FOR DISCHARGE. HEALTH TEACHING DONE. VERBAIZED UNDERSTANDING AND APPRECIATION. WILL CONTINUE TO MONITOR PATIENT. AWAITING PLACEMENT FOR SNF AND TRANSPORTATION SET-UP.
--- NOTE | 2021-11-05 17:00 | NUR ---
DRYING EQUIPMENT OPERATOR NOTE PATIENT TRANSFERRED ORDERED. PICKED-UP BY AMBULANCE FOR TRANSFER TO [facility] ORDERED. IN STABLE CONDITION AROUND 1645. DISCHARGE ORDERS AND PAPERS GIVEN TO EMT PERSONNEL. IV ACCESS REMOVED AND COVERED WITH DRY DRESSING. TOLERATED WELL. IN STABLE CONDITION. ACCOMPANIED BY 2 EMT PERSONNELLE ON A GURNEY. ENDORSED ACCORDINGLY.
== END 2021-11-06 | DRG 177 ==
LOC: ER 18:10 → TELE1 10-29 03:00 → ICU 10-29 14:57 → TELE2 10-31 19:44 → MEDSG2 11-05 10:33
PROVIDERS: ADMIT Family Medicine; ATTEND Nurse Practitioner Acute Care
PROC: 05HC33Z Insertion of Infusion Device into Left Basilic Vein, Percutaneous Approach (ICD-10-PCS; 2021-10-30)
PROC: 0W9D30Z Drainage of Pericardial Cavity with Drainage Device, Percutaneous Approach (ICD-10-PCS; principal; 2021-11-01)
DX: U07.1 COVID-19 (principal); J96.01 Acute respiratory failure with hypoxia; J12.82 Pneumonia due to coronavirus disease 2019; J15.9 Unspecified bacterial pneumonia; J98.11 Atelectasis; E44.1 Mild protein-calorie malnutrition; D68.59 Other primary thrombophilia; I31.3 Pericardial effusion (noninflammatory); J90 Pleural effusion, not elsewhere classified; E87.1 Hypo-osmolality and hyponatremia; I31.9 Disease of pericardium, unspecified; I42.9 Cardiomyopathy, unspecified; E44.0 Moderate protein-calorie malnutrition; I31.4 Cardiac tamponade; E11.9 Type 2 diabetes mellitus without complications; I10 Essential (primary) hypertension; I25.10 Atherosclerotic heart disease of native coronary artery without angina pectoris; Z86.73 Personal history of transient ischemic attack (TIA), and cerebral infarction without residual deficits; E86.1 Hypovolemia; D64.9 Anemia, unspecified; D63.8 Anemia in other chronic diseases classified elsewhere; U09.9 Post COVID-19 condition, unspecified; E88.09 Other disorders of plasma-protein metabolism, not elsewhere classified; I48.91 Unspecified atrial fibrillation; K80.20 Calculus of gallbladder without cholecystitis without obstruction; D75.839 Thrombocytosis, unspecified
CPT/HCPCS: 36415; 36600; 71045-TC; 80048-TC; 80053-TC; 81001; 82550-TC; 82728-TC; 82803-TC; 82962-TC; 83540-TC; 83605-TC; 83615-TC; 83735-TC; 83880; 84100-TC; 84484-TC; 85025-TC; 85378-TC; 85730-TC; 86140-TC; 87040-TC; 87070-TC; 87081-TC; 87086-TC; 87806; 88108-TC; 88305-TC; 89051-TC; 93307-TC; 93308-TC; 97116-TC; 97530-TC; G0378; J0282; J0456; J0690; J0696; J1100; J1650; J1815; J1940; J2250; J3010; J3490; J7030; J7040; J7060; Q9967; U0003

== ENCOUNTER 2021-11-07 00:20 | Inpatient (IN) | payer MEDICARE, OTHER ==
[~2021-11-07] VITALS: Ht 144.8 cm; Wt 65.8 kg
[~2021-11-07 00:20] MED LIST: *INS REG SQ; ACET325T53 PO; AMIO200T5 PO; AMIO200T7 PO; AMLO-212 PO; APIX5TAB PO; Blood Sugar Diagnostic VI; CHOL100040 PO; CHOL250C2 PO; DEXA10VI2 PO; METF-440 PO; ROSU10TA29 PO; ZINC1CAP3 PO
--- NOTE | 2021-11-07 00:45 | NUR ---
BIB FAMILY C/O GENERALIZED WEAKNESS AND FEELING "BAD". D/C FROM REHAB YESTERDAY FOLLOWING RECENT HOSPITALIZATION. TESTED + FOR COVID OCTOBER 28. PT AFEBRILE UPON TRIAGE. PT CHANGED INTO A GOWN AND PLACED ON MONITOR.
--- NOTE | 2021-11-07 01:17 | NUR ---
LFA #20G S/L; PATENT AND INTACT. BLOOD, COVID ANTIGEN SWAB, AND URINE COLLECTED AND SENT TO LAB
[2021-11-07 01:23] LABS: BASOPHILS % (AUTO) 0.1 % (0.0-2.0); HEMATOCRIT 39 % (33-45); HEMOGLOBIN 13.2 g/dL (11.5-14.8); LYMPHOCYTES # (AUTO) 0.5 K/uL (0.8-4.8); LYMPHOCYTES % (AUTO) 5.3 % (20.0-44.0); MEAN CORPUSCULAR HGB CONC 34 g/dl (31.0-36.0); MEAN CORPUSCULAR VOLUME 85 fL (82-100); MONOCYTES # (AUTO) 0.5 K/uL (0.1-1.30); MONOCYTES % (AUTO) 4.8 % (2.0-12.0); NEUTROPHILS # (AUTO) 8.5 K/uL (1.8-8.9); NEUTROPHILS % (AUTO) 89.8 % (43.0-81.0); PLATELET COUNT (AUTO) 499 K/uL (150-450); RED BLOOD CELL COUNT(AUTO) 4.59 MIL/uL (4.0-5.2); WHITE BLOOD COUNT (AUTO) 9.5 K/uL (4.3-11.0)
--- NOTE | 2021-11-07 01:55 | NUR ---
LACTIC ACID 3.3
--- NOTE | 2021-11-07 01:57 | NUR ---
CARBON FURNACE OPERATOR HELPER AT BEDSIDE
[2021-11-07] MEDS ORDERED: CEFEPIME 1 GM in IV D5W 50 ML IV ONE (02:00)
[2021-11-07] MEDS ORDERED: VANCOMYCIN 1 GM in IV D5W 250 ML IV ONE (02:00)
[2021-11-07 02:02] LABS: CALCIUM, SERUM 8.4 mg/dL (8.5-10.1); CARBON DIOXIDE 26 mmol/L (21-32); CHLORIDE 93 mmol/L (98-107); CREATININE 0.9 mg/dL (0.6-1.3); GLUCOSE 201 mg/dL (74-106); POTASSIUM 4.1 mmol/L (3.5-5.1); SODIUM SERUM 130 mmol/L (136-145); UREA NITROGEN, BLOOD 26 mg/dL (7-18)
[2021-11-07] MEDS ORDERED: CEFEPIME 1 GM VIAL ONE (02:05)
[2021-11-07] MEDS ORDERED: VANCOMYCIN 1 GM VIAL ONE (02:06)
[2021-11-07 02:11] LABS: BILIRUBIN,URINE NEGATIVE (NEGATIVE); COLOR,URINE YELLOW (YELLOW); LEUKOCYTE ESTERASE ,URINE NEGATIVE (NEGATIVE); NITRITE, URINE NEGATIVE (NEGATIVE); PROTEIN,URINE NEGATIVE (NEGATIVE); UGLUCOSE 250 MG/DL mg/dL (NEGATIVE); UROBILINOGEN,URINE 0.2 EU/dL (0.2)
[2021-11-07 02:14] LABS: ALANINE AMINOTRANSFERASE 80 U/L (12-78); ALKALINE PHOSPHATASE 88 U/L (46-116); ASPARTATE AMINOTRANSFERASE 34 U/L (15-37); BILIRUBIN,DIRECT 0.2 mg/dL (0.0-0.2); BILIRUBIN,TOTAL 0.5 mg/dL (0.2-1.0); TOTAL PROTEIN, SERUM 6.5 g/dL (6.4-8.2)
[2021-11-07] MEDS ORDERED: IV NS 0.9% 1,000 ML IV ONE (02:30)
[2021-11-07] MEDS ORDERED: IOHEXOL-350 100 ML VIAL IV ONE ×2 (02:31→15:35)
[2021-11-07] MEDS ORDERED: IV NS 0.9% 250 ML IV ONE ×2 (02:32→15:35)
--- NOTE | 2021-11-07 02:32 | NUR ---
1000ML NS D/C PER MD SORIA VERBAL ORDER
--- NOTE | 2021-11-07 02:37 | NUR ---
PT TO RADIOLOGY FOR CT
[2021-11-07 02:44] LABS: BACTERIA,URINE None seen /HPF (None Seen); RBC,URINE 0-2 /HPF (0-2); SQUAMOUS EPITHELIAL CELL,UR Few /HPF (None Seen); WBC,URINE 0-2 /HPF (0-3)
[2021-11-07] MEDS ORDERED: MAG HYDROX/AL HYDROX/SIMETH 30 ML UDC PO PRN (03:00)
[2021-11-07] MEDS ORDERED: Z GUARD REMEDY 4 OZ OINT TP PRN (03:00)
[2021-11-07] MEDS ORDERED: ONDANSETRON HCL/PF 4 MG/2 ML VIAL IVP PRN (03:00)
[2021-11-07] MEDS ORDERED: ACETAMINOPHEN 325 MG TABLET PO PRN (03:00)
--- NOTE | 2021-11-07 06:41 | NUR ---
COVID PCR SWAB COLLECTED, SENT TO LAB
--- NOTE | 2021-11-07 06:59 | NUR ---
ROOM 209-1 REPORT TO BE GIVEN AFTER CHANGE OF SHIFT
--- NOTE | 2021-11-07 07:17 | NUR ---
REPORT GIVEN TO URVASHI FOR FACUNDO
--- NOTE | 2021-11-07 07:51 | NUR ---
pt transported to floor via acls protocol
[2021-11-07 08:00] VITALS: BP 133/78
--- NOTE | 2021-11-07 08:00 | NUR ---
CHUTE WORKER ADMITTING NOTES RECEIVED PATIENT FROM E. VIA MARYCHUY, ACCOMPANIED BY ADELFO ALTAMIRANO. PATIENT IS IS A&O X 2-4, SRI LANKAN SPEAKING ON O2 VIA NC AT 2LPM. SATURATING WELL, NO S/SX OF RESPIRATORY DISTRESS NOTED. NOTED WITH IV ACCESS ON LEFT FOREARM G #20, STARTED IV OF NS 1L X 100 CC/HR, INFUSING WELL, NO S/X OF INFILTRATION NOTED. HOOKED TO TELE MONITOR, READING SHOWING SR HR AT 80'S. NO SKIN ISSUES IDENTIFIED. VITAL SIGNS TAKEN AND RECORDED. SAFETY PRECAUTIONS IN PLACE: BED ON LOWEST LOCKED POSITION, SIDE RAILS UP X2, CALL LIGHT WITHIN EASY REACH. WILL CONTINUE TO MONITOR ACCORDINGLY.
[2021-11-07] MEDS: PANTOPRAZOLE 40 MG TABLET.DR PO SCH (08:31)
[2021-11-07] MEDS: METFORMIN 500 MG TABLET PO SCH (08:49)
[2021-11-07] MEDS: AMIODARONE HCL 200 MG TABLET PO SCH ×2 (08:50→21:27)
[2021-11-07] MEDS: APIXABAN 5 MG TABLET PO SCH ×2 (08:51→16:47)
[2021-11-07] MEDS ORDERED: APIXABAN 5 MG TABLET PO SCH (09:00)
[2021-11-07] MEDS ORDERED: ENOXAPARIN SODIUM 30 MG/0.3 ML DISP.SYRIN SQ SCH (09:00)
--- NOTE | 2021-11-07 14:00 | NUR ---
RN NOTES PATIENT IS FOR CT OF NATALIYA ABDOMEN AND PELVIS WITH CONTRAST. EXPLAINED PROCEDURE WITH THE PATIENT, PATIENT'S SON ON THE PHONE FOR TRANSLATION. PATIENT AGREED PROCEDURE AND SIGNED CONSENT.
[2021-11-07] MEDS ORDERED: CT SWABBABLE VALVE TRANS SET 1 EA INFUS.SET MC ONE (15:35)
--- NOTE | 2021-11-07 16:00 | NUR ---
RN NOTES PATIENT WAS PICKED UP FOR CT OF THE ABDOMEN AND PELVIS.
--- NOTE | 2021-11-07 18:39 | NUR ---
MICROPALEONTOLOGIST CLOSING NOTES PATIENT IS A&O X 3-4, AUSTRIAN SPEAKING ON O2 VIA NC AT 2LPM. SATURATING WELL, NO S/SX OF RESPIRATORY DISTRESS NOTED. NOTED WITH IV ACCESS ON LEFT FOREARM G #20 ONGOING IV OF NS 1L X 100 CC/HR, INFUSING WELL, NO S/X OF INFILTRATION NOTED. ON TELE MONITOR, READING SHOWING SR HR AT 80'S. SAFETY PRECAUTIONS IN PLACE: BED ON LOWEST LOCKED POSITION, SIDE RAILS UP X2, CALL LIGHT WITHIN EASY REACH. ALL NEEDS ATTENDED AND MET. DUE MEDS GIVEN ORDERED. WILL ENDORSE TO ONCOMING SHIFT FOR FACUNDO.
--- NOTE | 2021-11-07 19:45 | NUR ---
PACKING MACHINE FEEDER OPENING NOTES RECEIVED PATIENT LAYING AWAKE IN BED. A/O X 3-4. PATIENT WITH REGULAR AND UNLABORED BREATHING ON 2 LPM VIA NASAL CANULA, TOLERATED WELL. NO SIGNS AND SYMPTOMS OF DISTRESS NOTED AT THIS TIME. NO COMPLAINS OF PAIN OR DISCOMFORT AT THIS TIME. PATIENT ON TELE MONITOR READING SR @ 85 BPM. IV ACCESS LFA G #20 RUNNING NS @ 100 ML/HR. IV ACCESS PATENT AND INTACT. SAFETY PRECAUTIONS ENFORCED WITH BED LOCKED AND AT LOWEST POSITION. CALL LIGHT WITHIN REACH AT ALL TIMES. WILL CONTINUE TO MONITOR PATIENT.
[2021-11-07 20:00] VITALS: BP 137/74
[2021-11-07] MEDS: ATORVASTATIN 10 MG TABLET PO SCH (21:27)
[2021-11-07] MEDS: IV NS 0.9% 1,000 ML IV PRN (21:33)
[2021-11-07] MEDS: ZOLPIDEM TARTRATE 5 MG TABLET PO PRN (22:40)
[2021-11-08] VITALS: BP 126/71
[2021-11-08] MEDS ORDERED: CEFEPIME 2 GM in IV D5W 100 ML IV SCH (02:00)
[2021-11-08 02:57] LABS: BASOPHILS % (AUTO) 0.2 % (0.0-2.0); HEMATOCRIT 36 % (33-45); LYMPHOCYTES % (AUTO) 11.4 % (20.0-44.0); MEAN CORPUSCULAR HGB CONC 34 g/dl (31.0-36.0); MEAN CORPUSCULAR VOLUME 85 fL (82-100); MONOCYTES # (AUTO) 0.7 K/uL (0.1-1.30); MONOCYTES % (AUTO) 8.2 % (2.0-12.0); NEUTROPHILS # (AUTO) 6.6 K/uL (1.8-8.9); NEUTROPHILS % (AUTO) 79.2 % (43.0-81.0); PLATELET COUNT (AUTO) 369 K/uL (150-450); RED BLOOD CELL COUNT(AUTO) 4.16 MIL/uL (4.0-5.2); WHITE BLOOD COUNT (AUTO) 8.4 K/uL (4.3-11.0)
[2021-11-08] MEDS ORDERED: VANCOMYCIN 1 GM in IV D5W 250ml IV SCH (03:00)
[2021-11-08 03:05] LABS: CALCIUM, SERUM 7.3 mg/dL (8.5-10.1); CREATININE 0.9 mg/dL (0.6-1.3)
[2021-11-08 03:11] LABS: ALBUMIN 2.2 g/dL (3.4-5.0); BILIRUBIN,TOTAL 0.5 mg/dL (0.2-1.0); MAGNESIUM 2.1 mg/dL (1.8-2.4)
[2021-11-08 03:20] LABS: THYROID STIMULATING HORMONE 0.926 uIU/mL (0.358-3.74)
[2021-11-08 04:00] VITALS: BP 131/68
--- NOTE | 2021-11-08 06:54 | NUR ---
ADOLESCENT COORDINATOR CLOSING NOTES PATIENT STILLLAYING AWAKE IN BED. A/O X 3-4. PATIENT WITH REGULAR AND UNLABORED BREATHING ON 2 LPM VIA NASAL CANULA, TOLERATED WELL. NO SIGNS AND SYMPTOMS OF DISTRESS NOTED AT THIS TIME. NO COMPLAINS OF PAIN OR DISCOMFORT AT THIS TIME. PATIENT ON TELE MONITOR READING SR @ 80 BPM. IV ACCESS LFA G #20 RUNNING NS @ 100 ML/HR. IV ACCESS PATENT AND INTACT. SAFETY PRECAUTIONS ENFORCED WITH BED LOCKED AND AT LOWEST POSITION. CALL LIGHT WITHIN REACH AT ALL TIMES. WILL ENDORSE CONTINUITY OF CARE TO DAY SHIFT NURSE.
--- NOTE | 2021-11-08 07:42 | NUR ---
UPHOLSTERY TRIMMER OPENING NOTES RECEIVED PATIENT IN BED, AWAKE, A/O X3. PATIENT ON OXYGEN THERAPY AT 2 LPM VIA NASAL CANULA; BREATHING EVEN AND UNLABORED, NO SOB NOTED. TELE MONITOR WITH A CURRENT READING OF SR. IV ACCESS AT LFA G # 20 PRESENT AND INTACT RUNNING NS @ 100 MLS/HR. NO COMPLAINS OF PAIN. SAFETY PRECAUTIONS IN PLACE; BED IN LOW POSITION AND LOCKED, RAILS UP X2, YANDY LIGHT WITHIN REACH. WILL CONTINUE TO MONITOR PATIENT.
[2021-11-08 08:41] VITALS: BP 144/74
[2021-11-08] MEDS: AMIODARONE HCL 200 MG TABLET PO SCH ×2 (08:43→20:54)
[2021-11-08] MEDS: METFORMIN 500 MG TABLET PO SCH (08:44)
[2021-11-08] MEDS: PANTOPRAZOLE 40 MG TABLET.DR PO SCH (08:44)
[2021-11-08] MEDS: APIXABAN 5 MG TABLET PO SCH ×2 (08:45→16:17)
[2021-11-08] MEDS: IV NS 0.9% 1,000 ML IV PRN ×2 (09:46→21:00)
[2021-11-08 12:39] VITALS: BP 124/76
[2021-11-08 16:03] VITALS: BP 139/75
--- NOTE | 2021-11-08 18:39 | NUR ---
SEWING SUPERVISOR CLOSING NOTES PATIENT REMAINS IN BED, AWAKE, A/O X4. PATIENT ON OXYGEN THERAPY AT 2 LPM VIA NASAL CANULA; BREATHING EVEN AND UNLABORED, NO SOB NOTED. TELE MONITOR WITH A CURRENT READING OF SR. IV ACCESS AT LFA G # 20 PRESENT AND INTACT RUNNING NS @ 100 MLS/HR. NO COMPLAINS OF PAIN. ALL NEEDS ATTENDED DURING THE DAY. SAFETY PRECAUTIONS IN PLACE; BED IN LOW POSITION AND LOCKED, RAILS UP X2, YANDY LIGHT WITHIN REACH. WILL ENDORSE TO FUR FARMER NURSE FOR FACUNDO.
--- NOTE | 2021-11-08 19:35 | NUR ---
RN opening notes Received Pt from morning nurse. Pt is laying in bed comfortably talking on cellphone. Pt is alert and orientedX4. Pt speaks Irish and able to make needs known. respiration is normal in 2 L NC. no SOB. No S/s of distress noted. IV site at LFA# 20 is clean, intact and infusing well NS@ 100ml/hr. Tele monitor showed SR. safety precautions is maintained. Bed at low position, brakes locked, side rail upX3, hob elevated and call light is within reach. will continue to monitor.
[2021-11-08 20:00] VITALS: BP 125/82
[2021-11-08] MEDS: ATORVASTATIN 10 MG TABLET PO SCH (21:01)
[2021-11-08] MEDS: MAGNESIUM HYDROXIDE 30 ML UDC PO PRN (21:11)
--- NOTE | 2021-11-08 21:11 | NUR ---
RN notes Pt is requesting milk of magnesia to help her with BM. Administered milk of magnesia/po/prn as ordered per Pt's request. Will continue to monitor.
[2021-11-08] MEDS: ZOLPIDEM TARTRATE 5 MG TABLET PO PRN (21:39)
--- NOTE | 2021-11-08 21:39 | NUR ---
RN notes Pt is having insomnia and requesting a sleeping pill. Administered ambien 5 mg/po/prn as ordered per Pt' request. Safety precautions is maintained. Will continue to monitor.
[2021-11-09] VITALS: BP 114/62
[2021-11-09 04:00] VITALS: BP 142/77
[2021-11-09] MEDS: IV NS 0.9% 1,000 ML IV PRN (06:12)
--- NOTE | 2021-11-09 06:40 | NUR ---
RN closing notes Pt is resting in bed comfortably. Pt is alert and orientedX4. Pt speaks Cuban and able to make needs known. respiration is normal in 2 L NC. no SOB. No S/s of distress noted. IV site at LFA# 20 is clean, intact and infusing well NS@ 100ml/hr. Tele monitor showed SR hr 69. routine meds were given as ordered. Kept Pt clean, dry and comfortable. safety precautions is maintained. Bed at low position, brakes locked, side rail upX3, hob elevated and call light is within reach. will endorse to am nurse for FACUNDO.
[2021-11-09 07:05] LABS: CALCIUM, SERUM 7.3 mg/dL (8.5-10.1); CREATININE 0.9 mg/dL (0.6-1.3); MAGNESIUM 2.1 mg/dL (1.8-2.4); PHOSPHORUS 3.3 mg/dL (2.5-4.9); POTASSIUM 3.4 mmol/L (3.5-5.1)
[2021-11-09 07:06] LABS: EOSINOPHILS % (AUTO) 1.8 % (0.0-6.0); HEMATOCRIT 35 % (33-45); HEMOGLOBIN 11.9 g/dL (11.5-14.8); LYMPHOCYTES % (AUTO) 12.7 % (20.0-44.0); MEAN CORPUSCULAR HGB CONC 34 g/dl (31.0-36.0); MEAN CORPUSCULAR VOLUME 84 fL (82-100); MONOCYTES # (AUTO) 0.6 K/uL (0.1-1.30); MONOCYTES % (AUTO) 7.3 % (2.0-12.0); NEUTROPHILS # (AUTO) 6.1 K/uL (1.8-8.9); NEUTROPHILS % (AUTO) 78.2 % (43.0-81.0); PLATELET COUNT (AUTO) 332 K/uL (150-450); RED BLOOD CELL COUNT(AUTO) 4.12 MIL/uL (4.0-5.2); WHITE BLOOD COUNT (AUTO) 7.8 K/uL (4.3-11.0)
[2021-11-09 08:00] VITALS: BP 144/81
[2021-11-09] MEDS: PANTOPRAZOLE 40 MG TABLET.DR PO SCH (08:56)
[2021-11-09] MEDS: METFORMIN 500 MG TABLET PO SCH (08:56)
[2021-11-09] MEDS: AMIODARONE HCL 200 MG TABLET PO SCH (08:57)
[2021-11-09] MEDS: APIXABAN 5 MG TABLET PO SCH (08:58)
[2021-11-09] MEDS ORDERED: ACETAMINOPHEN 325 MG TABLET PO PRN (09:30)
[2021-11-09] MEDS ORDERED: *INSULIN REGULAR(HUMULIN R)HUM 100 UNIT/ML VIAL SQ PRN (09:30)
[2021-11-09] MEDS ORDERED: POTASSIUM CHLORIDE 20 MEQ TAB.PRT.SR PO SCH (11:00)
--- NOTE | 2021-11-09 11:30 | NUR ---
TANK TENDER NOTE PATIENT SEEN BY DR. OCONNELL WITH ORDERS MADE AND CARRIED OUT. COMFORT MEASURES PROVIDED. HEALTH TEACHING DONE REGARDING DISCHARGE. WILL ENDORSE TO FACILITY WELL. AWAITING FACILITY AND PICKUP TIME. WILL CONTINUE TO MONITOR PATIENT.
[2021-11-09 12:00] VITALS: BP 144/97
[2021-11-09] MEDS: MAGNESIUM HYDROXIDE 30 ML UDC PO PRN (14:20)
[2021-11-09 15:41] VITALS: BP 134/73
--- NOTE | 2021-11-09 15:50 | NUR ---
DIRECTOR OF EMPLOYER SERVICES NOTE PATIENT DISCHARGED AROUND 1545 ORDERED IN STABLE CONDITION. PATIENT ACCOMPANIED BY 2 EMT PERSONNEL. PATIENT ENDORSED TO [facility] RN JILLIAN ALTAMIRANO. PATIENT ACCOMPANIED BY 2 EMT PERSONNEL AND TRANSPORTED VIA GURNEY. IN STABLE CONDITION. IV ACCESS REMOVED AND COVERED WITH DRY DRESSING. TOLERATED WELL. NOT IN DISTRESS. ENDORSED ACCORDINGLY.
[2021-11-09] MEDS ORDERED: AMLODIPINE BESYLATE 5 MG TABLET PO SCH (17:00)
[2021-11-10] MEDS ORDERED: AMIODARONE HCL 200 MG TABLET PO SCH (09:00)
== END 2021-11-09 15:45 | DRG 178 ==
LOC: ER 00:24 → TELE2 07:34
PROVIDERS: ADMIT Registered Nurse; ATTEND Internal Medicine
DX: U07.1 COVID-19 (principal); E87.1 Hypo-osmolality and hyponatremia; E87.2 Acidosis; J90 Pleural effusion, not elsewhere classified; I42.9 Cardiomyopathy, unspecified; I31.3 Pericardial effusion (noninflammatory); J98.11 Atelectasis; I31.9 Disease of pericardium, unspecified; E86.0 Dehydration; E86.1 Hypovolemia; N28.9 Disorder of kidney and ureter, unspecified; E11.65 Type 2 diabetes mellitus with hyperglycemia; I25.10 Atherosclerotic heart disease of native coronary artery without angina pectoris; Z86.73 Personal history of transient ischemic attack (TIA), and cerebral infarction without residual deficits; I10 Essential (primary) hypertension; Z79.4 Long term (current) use of insulin; Z79.01 Long term (current) use of anticoagulants; Z79.84 Long term (current) use of oral hypoglycemic drugs; Z79.899 Other long term (current) drug therapy; E66.9 Obesity, unspecified; Z68.31 Body mass index [BMI] 31.0-31.9, adult; D75.839 Thrombocytosis, unspecified; K80.20 Calculus of gallbladder without cholecystitis without obstruction; I48.91 Unspecified atrial fibrillation; E87.8 Other disorders of electrolyte and fluid balance, not elsewhere classified; U09.9 Post COVID-19 condition, unspecified; R19.07 Generalized intra-abdominal and pelvic swelling, mass and lump
CPT/HCPCS: 36415; 71045-TC; 80048-TC; 80053-TC; 80076-TC; 81001; 83605-TC; 83735-TC; 83880; 84100-TC; 84443-TC; 84484-TC; 85025-TC; 85378-TC; 87040-TC; 87081-TC; 87086-TC; 93308-TC; 97110-TC; 97116-TC; 97530-TC; C9803; G0378; J0692; J3370; J7030; J7050; J7060; Q9967; U0003

== ENCOUNTER 2024-08-07 15:27 | Emergency (ER) | payer MEDICARE, OTHER ==
[~2024-08-07] VITALS: Ht 144.8 cm; Wt 65.3 kg
[~2024-08-07 15:27] MED LIST changes: -ACET325T53 PO; -AMIO200T5 PO; -Blood Sugar Diagnostic VI; -CHOL250C2 PO; -DEXA10VI2 PO; -ZINC1CAP3 PO
[2024-08-07] MEDS ORDERED: ACET-2605 PO (16:41)
[2024-08-07] MEDS ORDERED: LIDO30AD10 TP (16:41)
[2024-08-07] MEDS ORDERED: LIDOCAINE 5% (PATCH) 1 EA PATCH TP ONE (16:47)
[2024-08-07] MEDS: LIDOCAINE 5% (PATCH) 1 EA PATCH TP STA (17:04)
[2024-08-07 17:08] VITALS: BP 145/80; TEMP 98.2; O2SAT 97
== END 2024-08-07 17:11 | disposition home or self-care (01) ==
LOC: ER 15:39
DX: S92.514A Nondisplaced fracture of proximal phalanx of right lesser toe(s), initial encounter for closed fracture (principal); S20.211A Contusion of right front wall of thorax, initial encounter; M54.9 Dorsalgia, unspecified; E11.9 Type 2 diabetes mellitus without complications; E78.5 Hyperlipidemia, unspecified; I10 Essential (primary) hypertension; Z79.01 Long term (current) use of anticoagulants; Z79.84 Long term (current) use of oral hypoglycemic drugs; Z86.73 Personal history of transient ischemic attack (TIA), and cerebral infarction without residual deficits; Z88.6 Allergy status to analgesic agent; W01.0XXA Fall on same level from slipping, tripping and stumbling without subsequent striking against object, initial encounter; Y93.89 Activity, other specified; Y92.89 Other specified places as the place of occurrence of the external cause; Y99.8 Other external cause status
CPT/HCPCS: 71100-TC; 73630-TC

== ENCOUNTER 2025-02-12 18:02 | Emergency (ER) | payer MEDICARE, OTHER ==
[~2025-02-12] VITALS: Ht 144.8 cm; Wt 67.1 kg
[~2025-02-12 18:02] MED LIST changes: +ACET-2605 PO; +LIDO30AD10 TP
[2025-02-12 20:49] VITALS: BP 128/81; TEMP 98; O2SAT 96
== END 2025-02-12 20:50 | disposition home or self-care (01) ==
LOC: ER 18:06
DX: S93.491A Sprain of other ligament of right ankle, initial encounter (principal); S09.90XA Unspecified injury of head, initial encounter; I10 Essential (primary) hypertension; E11.9 Type 2 diabetes mellitus without complications; E78.5 Hyperlipidemia, unspecified; Z79.01 Long term (current) use of anticoagulants; Z79.84 Long term (current) use of oral hypoglycemic drugs; Z86.73 Personal history of transient ischemic attack (TIA), and cerebral infarction without residual deficits; Z88.6 Allergy status to analgesic agent; W01.0XXA Fall on same level from slipping, tripping and stumbling without subsequent striking against object, initial encounter; Y93.89 Activity, other specified; Y92.89 Other specified places as the place of occurrence of the external cause; Y99.8 Other external cause status
CPT/HCPCS: 70450-TC; 72125-TC; 73610-TC